=== PATIENT | female | born 1945 | race African-American/Black ===

== ENCOUNTER 2018-02-03 21:23 | Emergency (ER) | payer MEDICARE, BC ==
[~2018-02-03] VITALS: Ht 157.5 cm; Wt 50.0 kg
[2018-02-04 01:26] VITALS: BP 155/78
== END 2018-02-04 01:27 | disposition home or self-care (01) ==
LOC: ER 21:23
DX: F41.9 Anxiety disorder, unspecified (principal); R53.1 Weakness; R00.0 Tachycardia, unspecified; Z86.73 Personal history of transient ischemic attack (TIA), and cerebral infarction without residual deficits
CPT/HCPCS: 99283